=== PATIENT | female | born 1975 | race Hispanic/Latino ===

== ENCOUNTER 2021-08-11 12:40 | Emergency (ER) | payer SELFPAY ==
[2021-08-11] MEDS ORDERED: Ketorolac Tromethamine 30 MG/ML VIAL ONE (15:53)
[2021-08-11] MEDS ORDERED: Cyclobenzaprine 10 MG TAB ONE (15:53)
== END 2021-08-11 17:10 | disposition home or self-care (01) ==
LOC: CSHERS 12:40
DX: G44.209 Tension-type headache, unspecified, not intractable (principal); M19.90 Unspecified osteoarthritis, unspecified site
CPT/HCPCS: 96372; 99283; J1885

== ENCOUNTER 2024-06-09 20:07 | Emergency (ER) | payer OTHER, SELFPAY ==
[2024-06-09] MEDS ORDERED: Ondansetron PF 4 MG/2 ML Vial ONE (21:20)
[2024-06-09] MEDS ORDERED: Morphine 4 MG/ML VIAL ONE (21:20)
[2024-06-09 21:33] LABS: #Basophils 0.03 10x3/uL (0.0-0.2); #Eosinphils 0.34 10x3/uL (0.0-0.5); #Monocytes 0.59 10x3/uL (0.0-1.1); #Neutrophils 3.94 10x3/uL (1.5-8.4); %Basophils 0.4 % (0.0-2.0); %Eosinophils 4.5 % (0.0-6.0); %Lymphocytes 35.1 % (18.0-47.0); %Monocytes 7.8 % (0.0-10.0); %Neutrophils 51.8 % (40.0-75.0); Hematocrit 39.7 % (34.9-44.5); Hemoglobin 13.4 g/dL (12.0-15.5); Mean Corpuscular HGB CONC 33.8 g/dL (32.0-36.0); Mean Corpuscular Volume 83.1 fL (81.6-98.3); Mean Platelet Volume 10.1 fL (7.4-10.4); Platelet Count 356 10x3/uL (150-450); RBC Distribution Width 14.3 % (11.5-14.5); Red Blood Cell (RBC) Count 4.78 10x6/uL (3.90-5.03); White Blood Cell (WBC) Count 7.6 10x3/uL (3.5-10.5)
[2024-06-09 21:50] LABS: ALT (SGPT) 60 U/L (8-55); AST (SGOT) 37 U/L (5-34); Albumin 3.5 g/dL (3.5-5.0); Alkaline Phosphatase 118 U/L (40-110); Anion Gap 14 mmol/L (10-20); BUN (Urea Nitrogen) 13 mg/dL (7.0-18.7); Bilirubin, Total 0.3 mg/dL (0.2-1.2); Calc. Creatinine Clearance 0 mL/min (70-130); Carbon Dioxide 21 mmol/L (22-29); Chloride 107 mmol/L (98-107); Estimated GFR 102; Globulin 3.2 g/dL (2.4-3.5); Glucose 89 mg/dL (70-105); Lipase 24 U/L (8-78); Potassium 4.3 mmol/L (3.5-5.1); Protein, Total 6.7 g/dL (6.0-8.3); Sodium 138 mmol/L (136-145)
[2024-06-09 21:56] LABS: Troponin I Less than 0.010 ng/mL (< 0.028)
[2024-06-09] MEDS ORDERED: Methocarbamol 500 MG TAB ONE (23:52)
[2024-06-09] MEDS ORDERED: Dicyclomine 20 MG/2 ML VIAL ONE (23:52)
[2024-06-09] MEDS ORDERED: Ketorolac Tromethamine 30 MG (1 mL) VIAL ONE (23:52)
== END 2024-06-10 00:20 | disposition home or self-care (01) ==
LOC: CSHERS 20:07
DX: K80.20 Calculus of gallbladder without cholecystitis without obstruction (principal); M54.6 Pain in thoracic spine; I10 Essential (primary) hypertension; Z55.6 Problems related to health literacy
CPT/HCPCS: 71045; 74177; 80053; 83690; 83880; 84484; 85025; 93005; 96372; 96374; 96375; J1885; J2272; J2405